=== PATIENT | female | born 1960 | race Caucasian/White ===

== ENCOUNTER 2024-11-28 06:44 | Day surgery (SDC) | payer MEDICARE, BC ==
[2024-11-28] MEDS ORDERED: Lactated Ringers 1,000 ML IV ONE (07:28)
[2024-11-28] MEDS: Lactated Ringers 1,000 ML IV SCH (07:32)
[2024-11-28] MEDS: TETRACAINE 0.5% STERI-UNIT SOL OP ONE ×2 (07:48→08:03)
[2024-11-28] MEDS: Ak-Dilate OPHTHALMIC*** 0.71 ML, Cyclogyl 1% OPHTH SOL 0.71 ML, GATIFLOXACIN 0.5% OPHTH... OP SCH (07:49)
[2024-11-28] MEDS ORDERED: BETADINE 5% OPHTHALMIC 30 ML OP NR (09:00)
[2024-11-28] MEDS ORDERED: Epinephrine Preservative Free 1 MG/ML INTRAOP NR (09:00)
[2024-11-28] MEDS ORDERED: TRIAMCINOLONE 15 MG/ML INJ INTRAOP NR (09:00)
[2024-11-28] MEDS ORDERED: VIGAMOX/BSS 0.15% SYR IO NR (09:00)
[2024-11-28] MEDS ORDERED: DEXMEDETOMIDINE 80 MCG/20ML-NS IV NR (09:00)
[2024-11-28] MEDS ORDERED: propofoL IV ONE (09:11)
[2024-11-28] MEDS ORDERED: Versed 2 MG/2 ML Injection ONE (09:11)
[2024-11-28] MEDS ORDERED: SUBLIMAZE 100 MCG/2 ML ONE (09:12)
[2024-11-28] MEDS ORDERED: Zofran 4 MG/2 ML VIAL IV PRN (09:15)
[2024-11-28 09:55] VITALS: RESP 18
[2024-11-28] MEDS: ACETAZOLAMIDE 250 MG TABLET PO ONE (09:56)
[2024-11-28 10:00] VITALS: PULSE 64; O2SAT 99
[2024-11-28 10:04] VITALS: BP 127/73; TEMP 97.7
== END 2024-11-28 10:37 | disposition home or self-care (01) ==
LOC: SDC 06:44
PROVIDERS: ATTEND Ophthalmology
DX: H25.812 Combined forms of age-related cataract, left eye (principal)
CPT/HCPCS: C1780; J0171; J2250; J2704; J3010; A9270-GY